=== PATIENT | male | born 1930 | race Caucasian/White ===

== ENCOUNTER 2017-10-15 06:52 | Day surgery (SDC) | payer OTHER ==
[~2017-10-15] VITALS: Ht 167.6 cm; Wt 75.0 kg
[2017-10-15] MEDS ORDERED: BENZOCAINE 20% 50 MCG/SPRAY 57 GM TP ONE (06:53)
[2017-10-15] MEDS ORDERED: LIDOCAINE HCL 2% 30 ML JELLY TP ONE (06:53)
[2017-10-15] MEDS ORDERED: LIDOCAINE HCL 4% 50 ML SOLUTION TP ONE (06:53)
[2017-10-15] MEDS ORDERED: SODIUM CHLORIDE 0.9% 1,000 ML IV ONE ×2 (07:05→08:30)
[2017-10-15] MEDS ORDERED: FERR-89 PO (07:30)
[2017-10-15] MEDS ORDERED: FLUT16H NASAL (07:30)
[2017-10-15] MEDS ORDERED: RANI150T7 PO (07:30)
[2017-10-15] MEDS ORDERED: PRED10 PO (07:30)
[2017-10-15] MEDS ORDERED: MONT10TA21 PO (07:30)
[2017-10-15] MEDS ORDERED: IPRA4AER IH (07:30)
[2017-10-15] MEDS ORDERED: OMEP20 PO (07:30)
[2017-10-15] MEDS ORDERED: MIDAZOLAM HCL 2 MG/2 ML VIAL ONE (07:46)
[2017-10-15] MEDS ORDERED: FentaNYL CITRATE-PF 100 MCG/2 ML VIAL ONE (07:47)
[2017-10-15] MEDS ORDERED: MethylPREDNISolone SOD SUCC 125 MG/2 ML VIAL IVP ONE (09:00)
[2017-10-15] MEDS ORDERED: MethylPREDNISolone SOD SUCC 125 MG/2 ML VIAL ONE (09:20)
[2017-10-15] MEDS ORDERED: OXYGEN THERAPY IH SCH (20:00)
== END 2017-10-15 10:15 | disposition home or self-care (01) ==
LOC: SURGERY 06:52
PROVIDERS: ATTEND Internal Medicine Critical Care Medicine
DX: J38.4 Edema of larynx (principal); B37.0 Candidal stomatitis; J84.111 Idiopathic interstitial pneumonia, not otherwise specified; F10.21 Alcohol dependence, in remission; K21.9 Gastro-esophageal reflux disease without esophagitis; Z87.891 Personal history of nicotine dependence; Z98.42 Cataract extraction status, left eye; Z98.41 Cataract extraction status, right eye; Z98.890 Other specified postprocedural states; Z79.899 Other long term (current) drug therapy
CPT/HCPCS: 31623; 31624; 71045; 87015; 87070; 87147; 87205; 87220; 88108; 88312; 93005; 94640; J2250; J2930; J3010; J7030